=== PATIENT | male | born 1965 | race Caucasian/White ===

== ENCOUNTER 2019-06-01 08:31 | Day surgery (SDC) | payer OTHER ==
[~2019-06-01] VITALS: Ht 182.9 cm; Wt 98.2 kg
[~2019-06-01 08:31] MED LIST: IBUP800
[2019-06-01] MEDS ORDERED: Amitriptyline100 MG (09:04)
== END 2019-06-01 23:59 | disposition home or self-care (01) ==
LOC: ORSCSDS 08:31
PROVIDERS: Internal Medicine Gastroenterology
PROC: 0DBP8ZX Excision of Rectum, Via Natural or Artificial Opening Endoscopic, Diagnostic (ICD-10-PCS; principal; 2019-06-01 09:30)
PROC: 0DBL8ZX Excision of Transverse Colon, Via Natural or Artificial Opening Endoscopic, Diagnostic (ICD-10-PCS; principal; 2019-06-01 09:30)
PROC: 0DBN8ZX Excision of Sigmoid Colon, Via Natural or Artificial Opening Endoscopic, Diagnostic (ICD-10-PCS; principal; 2019-06-01 09:30)
PROC: 0DBK8ZX Excision of Ascending Colon, Via Natural or Artificial Opening Endoscopic, Diagnostic (ICD-10-PCS; principal; 2019-06-01 09:30)
DX: Z12.11 Encounter for screening for malignant neoplasm of colon (principal); D12.3 Benign neoplasm of transverse colon; K63.5 Polyp of colon; K62.1 Rectal polyp; Z87.891 Personal history of nicotine dependence; I48.0 Paroxysmal atrial fibrillation; Z79.899 Other long term (current) drug therapy
CPT/HCPCS: 88305; J2704; J7120

== ENCOUNTER 2020-08-27 08:33 | Day surgery (SDC) | payer OTHER ==
[~2020-08-27] VITALS: Ht 182.9 cm; Wt 105.4 kg
[~2020-08-27 08:33] MED LIST changes: +Amitriptyline100 MG
== END 2020-08-27 12:07 | disposition home or self-care (01) ==
LOC: ORSCSDS 08:33
PROVIDERS: Internal Medicine Gastroenterology
PROC: 0DBK8ZX Excision of Ascending Colon, Via Natural or Artificial Opening Endoscopic, Diagnostic (ICD-10-PCS; principal; 2020-08-27 11:00)
PROC: 0DBN8ZX Excision of Sigmoid Colon, Via Natural or Artificial Opening Endoscopic, Diagnostic (ICD-10-PCS; principal; 2020-08-27 11:00)
DX: Z86.010 Personal history of colon polyps (principal); D12.2 Benign neoplasm of ascending colon; D12.5 Benign neoplasm of sigmoid colon; K57.30 Diverticulosis of large intestine without perforation or abscess without bleeding; K64.8 Other hemorrhoids; I48.0 Paroxysmal atrial fibrillation; Z79.899 Other long term (current) drug therapy; F17.210 Nicotine dependence, cigarettes, uncomplicated
CPT/HCPCS: 88305; J2704; J7120

== ENCOUNTER 2021-08-10 12:49 | Observation (INO) | payer OTHER ==
[~2021-08-10] VITALS: Ht 182.9 cm; Wt 103.4 kg
[~2021-08-10 12:49] MED LIST changes: -Norco 5-325 Ta1 EACH PO
[2021-08-10 13:58] LABS: Influenza A, PCR NEGATIVE (NEGATIVE); Influenza B, PCR NEGATIVE (NEGATIVE); Resp Syncytial Virus, PCR NEGATIVE (NEGATIVE); SARS-Cov-2 (COVID-19) PCR, MMC NEGATIVE (NEGATIVE)
--- NOTE | 2021-08-10 19:10 | NUR ---
PATIENT ADMITTED SP LAP APPY BY DR DICKSON; 3 LAP SITE CDI; PATIENT REPORTS TENDERNESS TO ABD. PAIN RATED 5/10. PRN NORCO GIVEN WITH RELIEF. PATIEN WITH LOW GRADE TEMP 100.2 POST OP. 650MG TYLENOL INCLUDED IN NORCO GIVEN. PATIENT TRANSFERED TO BED WITH SBA; WATER AND JELLO GIVEN, PATIENT REPORTED VERY MILD NAUSEA BUT TOLERABLE.
--- NOTE | 2021-08-11 07:13 | NUR ---
SHIFT SUMMARY POD1 LAP APPY, A/OX4, VSS, TOLERATION DIET, AMBULATING INDEPENDENTLY IN HALLS, VOIDING WELL, SORIA WELL MANAGED, POSSIBLE DC TODAY. CALL LIGHT IN REACH, REPORT GIVEN TO DAY RN.
[2021-08-11] MEDS ORDERED: Norco 5-325 Ta1 EACH PO (09:38)
--- NOTE | 2021-08-11 11:40 | NUR ---
DISCHARGE PT LEFT VIA WHEELCHAIR. PT AMBULATING WELL IN HALLWAYS, PAIN MANAGED ORALLY PER EMAR. SCRIPT SENT WITH PATIENT. DISCHARGE INSTRUCTIONS GONE OVER WITH PATIENT IVS REMOVED. PT DENIED FURTHER QUESTIONS. LAP SITES CDI. PT PASSING GAS AND TOLERATING REGULAR DIET WITH NO NAUSEA.
== END 2021-08-11 10:30 | disposition home or self-care (01) ==
LOC: ER 12:49 → SURS 12:50
PROVIDERS: Physician Assistant; ADMIT Surgery
PROC: 0DTJ4ZZ Resection of Appendix, Percutaneous Endoscopic Approach (ICD-10-PCS; principal; 2021-08-10 15:45)
DX: K35.891 Other acute appendicitis without perforation, with gangrene (principal); I48.91 Unspecified atrial fibrillation; K42.9 Umbilical hernia without obstruction or gangrene
CPT/HCPCS: 0241U; 93005; 93010; 96365; 96375; 99285-25; A9270; J0330; J1100; J1885; J2405; J2543; J2704; J2710; J3010; J7120

== ENCOUNTER → 2021-08-10 | Outpatient (CLI) | payer OTHER ==
[~2021-08-10] MED LIST changes: +Norco 5-325 Ta1 EACH PO
[2021-08-10 10:31] LABS: BASOPHILS ABSOLUTE AUTO 0.04 K/mm3 (0.00-0.23); BASOPHILS PERCENT AUTO 0 % (0-2); EOSINOPHILS ABSOLUTE AUTO 0.01 K/mm3 (0.00-0.68); EOSINOPHILS PERCENT AUTO 0 % (0-6); IMMATURE GRAN ABSOLUTE AUTO 0.07 K/mm3 (0.00-0.10); IMMATURE GRAN PERCENT AUTO 1 % (0-1); LYMPHOCYTES ABSOLUTE AUTO 1.64 K/mm3 (0.84-5.20); LYMPHOCYTES PERCENT AUTO 11 % (21-46); MONOCYTES ABSOLUTE AUTO 0.98 K/mm3 (0.16-1.47); MONOCYTES PERCENT AUTO 6 % (4-13); Mean Corpuscular HGB 31.6 pg (26.0-34.0); Mean Corpuscular HGB Conc 35.4 g/dL (31.5-36.5); Mean Corpuscular Volume 89 fL (80-100); Mean Platelet Volume 8.7 fL (9.1-12.4); NEUTROPHILS ABSOLUTE AUTO 12.73 K/mm3 (1.96-9.15); NEUTROPHILS PERCENT AUTO 82 % (41-73); Platelet Count 258 K/mm3 (150-400); RDW Coefficient Variation 13.3 % (11.7-14.2); RDW Standard Deviation 43.5 fL (35.1-46.3); Red Blood Cell Count 5.38 M/mm3 (4.30-5.90); White Blood Cell Count 15.47 K/mm3 (4.00-11.30)
[2021-08-10 10:40] LABS: Alanine Aminotransfer (ALT/SGP 27 U/L (12-78); Albumin, Blood 3.8 g/dL (3.4-5.0); Albumin/Globulin Ratio 1.1 (0.8-1.8); Alk Phos 84 U/L (40-126); Anion Gap 9 mmol/L (6-16); Aspartate Aminotrans (AST/SGOT 9 U/L (12-37); Bilirubin, Total 1.2 mg/dL (0.1-1.0); Blood Urea Nitrogen 10 mg/dL (8-24); Bun/Creatinine Ratio 10.4 (12.0-20.0); CO2, Blood 28 mmol/L (21-32); Calcium, Blood 8.7 mg/dL (8.5-10.1); Chloride, Blood 99 mmol/L (98-108); Creatinine, Blood 0.96 mg/dL (0.60-1.20); Globulin, Blood 3.5 g/dL (2.2-4.0); Glomerular Filtration Rate >60 (60-); Glucose, Blood 133 mg/dL (70-99); Potassium, Blood 3.9 mmol/L (3.5-5.5); Sodium, Blood 136 mmol/L (136-145); Total Protein, Blood 7.3 g/dL (6.4-8.2)
== END ==
LOC: LAB SHORT 10:25 → LAB 10:25
PROVIDERS: Physician Assistant
DX: R10.31 Right lower quadrant pain (principal)
CPT/HCPCS: 80053; 83690; 85025

== ENCOUNTER 2023-08-25 16:59 | Emergency (ER) | payer OTHER ==
[~2023-08-25] VITALS: Ht 182.9 cm; Wt 113.4 kg
[~2023-08-25 16:59] MED LIST changes: +Norco 5-325 Ta1 EACH PO
[2023-08-25 19:49] VITALS: BP 127/82
== END 2023-08-25 20:44 | disposition left against medical advice (07) ==
LOC: ER 16:59
DX: M79.662 Pain in left lower leg (principal); Z53.21 Procedure and treatment not carried out due to patient leaving prior to being seen by health care provider
CPT/HCPCS: 93005; 93010; 99282-25